=== PATIENT | female | born 1995 | race Caucasian/White ===

== ENCOUNTER 2016-10-02 06:00 | Day surgery (SDC) | payer MEDICAID ==
[~2016-10-02] VITALS: Ht 157.5 cm; Wt 54.1 kg
[~2016-10-02 06:00] MED LIST: BUPR-93 PO; ESOM20CA31 PO; PROPOFOL 1% 20 ML VIAL IVP ONE; SODIUM CHLORIDE 0.9% 1,000 ML IV ONE
[2016-10-02] MEDS ORDERED: SODIUM CHLORIDE 0.9% 1,000 ML IV ONE (06:19)
[2016-10-02] MEDS ORDERED: FentaNYL CITRATE-PF 100 MCG/2 ML VIAL ONE (07:19)
[2016-10-02] MEDS ORDERED: MIDAZOLAM HCL 5 MG/ML VIAL ONE (07:19)
== END 2016-10-02 09:20 | disposition home or self-care (01) ==
LOC: SURGERY 06:00
PROVIDERS: ATTEND Specialist
DX: K29.70 Gastritis, unspecified, without bleeding (principal); K21.9 Gastro-esophageal reflux disease without esophagitis; F32.9 Major depressive disorder, single episode, unspecified; Z88.8 Allergy status to other drugs, medicaments and biological substances; Z90.49 Acquired absence of other specified parts of digestive tract; Z98.890 Other specified postprocedural states; Z83.3 Family history of diabetes mellitus
CPT/HCPCS: 43239; 84703; 88305; 88312; C1769; J2704; J7030; J2250; J3010